=== PATIENT | female | born 1945 | race Caucasian/White ===

== ENCOUNTER → 2023-07-18 12:30 | Outpatient (REF) | payer OTHER, SELFPAY | LOC: RCS 12:30 | PROVIDERS: ATTENDING PHYSICIAN Internal Medicine; FAMILY PHYSICIAN Family Medicine | DX: R55 Syncope and collapse (principal); I10 Essential (primary) hypertension; I36.1 Nonrheumatic tricuspid (valve) insufficiency; R00.0 Tachycardia, unspecified | CPT/HCPCS: 93017; 93350 ==

== ENCOUNTER 2023-08-12 06:27 | Day surgery (SDC) | payer OTHER, SELFPAY ==
[2023-08-08 08:51] LABS: Hematocrit 37.8 % (37.0-47.0); Mean Corp Hgb Conc. 31.7 g/dL (33.0-37.0); Mean Corpuscular Hgb 24.9 pg (27.0-31.0); Mean Corpuscular Volume 78.6 fL (81.0-99.0); Mean Platelet Volume 10.4 fL (7.4-10.4); Platelet Count 250 10^3/uL (130-400); Red Blood Cell Count 4.81 10^6/uL (4.20-5.40); Red Cell Dist. Width 16.1 % (11.5-14.5); White Blood Cell Count 4.9 10^3/uL (4.8-10.8)
[2023-08-08 10:12] VITALS: BMI 28.5
[2023-08-08 10:42] LABS: Blood Urea Nitrogen 14 mg/dl (7-17); Calcium 9.5 mg/dl (8.4-10.2); Carbon Dioxide 28 mmol/L (22-30); Chloride 103 mmol/L (98-107); Estimated Creatinine Clearance 71 ml/min; Glucose 94 mg/dl (70-99); Potassium 3.9 mmol/L (3.5-5.1); Sodium 139 mmol/L (135-145); eGFR > 60.00
[2023-08-12] VITALS (17 sets, daily range): BP systolic 129–157; BP diastolic 60–78; BMI 28.5; BMI 29.4
[2023-08-12] MEDS: NORMOSOL-R 1000 IV ×2 (11:50→18:25)
[2023-08-12] MEDS: Pyridium 200 MG PO (11:51)
[2023-08-12] MEDS: HEPARIN 5000 UNITS SC (11:51)
[2023-08-12] MEDS: ZOFRAN 4 MG IV ×2 (17:24→20:12)
--- NOTE | 2023-08-12 18:24 | SUR.PHASEI ---
Dr. Galloway updated over tiger text, that pt remains somulent, unable to wean 02 off, pt being admitted overnight.
--- NOTE | 2023-08-12 20:10 | PTCARENOTE ---
Pt. received from PACU around 1999. Pt. drowsy but arousable to verbal stimuli, A&Ox3, in NAD, even and unlabored breathing on 2L NC, denies pain at present, reports nausea with movement, and VSS. Pt. and spouse oriented to room and unit policies,
bed locked and in lowest position, side rails in place, and call light within reach.
[2023-08-12] MEDS: TORADOL 15 MG IV (20:22)
--- NOTE | 2023-08-12 21:33 | SUR.PHASEI ---
late entry pacu - patient in pacu extended stay for sedation and then admission. when awakened alert and oriented denies pain . vss at 1930 peripad saturated with blood and small clot. appears to have packing . TT Dr Galloway. at 1945 - peripad
dry - vss, discharge to [address] [place] [address] with report
[2023-08-12] MEDS: SYNTHROID 75 MCG PO (22:39)
[2023-08-12] MEDS: COLACE PO (22:40)
[2023-08-13] MEDS: TORADOL 15 MG IV ×2 (01:28→08:07)
[2023-08-13] MEDS: NORMOSOL-R 1000 IV (01:28)
[2023-08-13 03:18] VITALS: BP 127/77
[2023-08-13 05:38] LABS: Hematocrit 36.5 % (37.0-47.0); Hemoglobin 11.7 g/dL (12.0-16.0); Mean Corp Hgb Conc. 32.1 g/dL (33.0-37.0); Mean Corpuscular Hgb 25.2 pg (27.0-31.0); Mean Corpuscular Volume 78.5 fL (81.0-99.0); Mean Platelet Volume 10.6 fL (7.4-10.4); Platelet Count 228 10^3/uL (130-400); Red Blood Cell Count 4.65 10^6/uL (4.20-5.40); Red Cell Dist. Width 16.1 % (11.5-14.5); White Blood Cell Count 12.7 10^3/uL (4.8-10.8)
[2023-08-13 06:04] LABS: Blood Urea Nitrogen 18 mg/dl (7-17); Carbon Dioxide 25 mmol/L (22-30); Chloride 100 mmol/L (98-107); Estimated Creatinine Clearance 70 ml/min; Sodium 135 mmol/L (135-145)
[2023-08-13 07:25] VITALS: BP 152/80
--- NOTE | 2023-08-13 07:53 | W.PN.GYN ---
Today's Communication / Plan
-
-voiding trial
-d/c home
Physician Note
-
Assessment and Plan:
77 yo woman POD 1 s/p robotic TLH, BSO, sacrocolpopexy, posterior repair, retropubic sling and cystoscopy: patient doing well and meeting postoperative milestons.
Postoperative Care
-Hep lock iv
-regular diet
-dvt ppx: lovenox, scds, ambulation
-cbc: wnl
-bmp: wnl
-uop: adequate
-voiding tiral: pending
dispo
-d/c home today
Subjective:
no acute complaints, pain well controlled, vaginal bleeding resolved: had small amount of bleeding from her trochar sites, tolerating diet. denies chest pain, sob, fevers/chills, nausea vomiting
Ojbective:
Lab Results
08/13/23 05:23
08/13/23 05:23
Intake and Output
08/11/23 08/12/23 08/13/23 08/14/23
06:59 06:59 06:59 06:59
Intake Total 1999
Output Total 900 / 900
Balance 1100 / 1100
Intake:
IV fluids (Total) 1999
Normosol-R 1,000 ml @ 125 mls/ 400 / 400
hr IV .Q8H [facility] Rx#:[id number]
normosol 100 / 100
Output:
Urine, Sage 900 / 900
Vital Signs
Temp Pulse Resp BP Pulse Ox
97.6 F 86 18 152/80 98
08/13/23 07:25 08/13/23 07:25 08/13/23 07:25 08/13/23 07:25 08/13/23 07:25
Abdomen: soft, nontender, nondistended
Incisions: clean, dry, intact
: minimal bleeding on pad, small hematoma in suprapubic region
[2023-08-13] MEDS: NON-FORMULARY ITEM 1 UNIT PO (08:00)
[2023-08-13] MEDS: ARIMIDEX 1 MG PO (08:36)
[2023-08-13] MEDS: COLACE 100 MG PO (08:38)
[2023-08-13] MEDS: PROTONIX 40 MG PO (08:38)
[2023-08-13] MEDS: ORETIC 25 MG PO (08:38)
[2023-08-13] MEDS: TOPROL XL 25 MG PO (08:39)
--- NOTE | 2023-08-13 10:50 | CM ---
Reviewed the chart notes and spoke with the patient and her spouse at the bedside. The patient resides with her spouse in a three story home with two steps to enter. The patient report no DME/VN/SNF. The patient confirmed her [facility] of choice
is [facility]. CM continues to be available to patient/family and is monitoring medical plan for needs at discharge.
Plan: Discharge to home today. Patient's spouse will provide transportation. No additional needs identified at this time.
[2023-08-13 11:30] VITALS: BP 145/82
--- NOTE | 2023-08-13 14:04 | PTCARENOTE ---
Discharge instructions reviewed with patient and her spouse. Leg/fraga bag teaching done. Patient demonstrated understanding. Supplies sent hoe with patient.
== END 2023-08-13 14:25 | disposition home or self-care (01) ==
LOC: SDS 06:27
PROVIDERS: ATTENDING PHYSICIAN Obstetrics & Gynecology; FAMILY PHYSICIAN Family Medicine; OTHER PHYSICIAN Internal Medicine
DX: N81.3 Complete uterovaginal prolapse (principal); N39.3 Stress incontinence (female) (male); N36.41 Hypermobility of urethra
CPT/HCPCS: 58571; 57425; 57250; 57288; 88305; 36415; 80048; 80051; 82565; 84520; 85027; 86850; 86900; 86901; C1763; C1771